=== PATIENT | female | born 1985 | race Caucasian/White ===

== ENCOUNTER 2016-11-08 08:23 | Day surgery (SDC) | payer BC ==
[~2016-11-08] VITALS: Ht 165.1 cm; Wt 76.2 kg
[~2016-11-08 08:23] MED LIST: BUTALB-ACETAMI1 EAC2 PO; CLONAZEPAM1 MG PO; CYMBALTA30 MG PO; FETZIMA40 MG PO; FETZIMA80 MG PO; HYDROMORPHONE HC4 MG PO; LORAZEPAM2 MG PO; LUTERA1 EAC1 PO; NAPROXEN500 MG PO; NORCO 7.5/321 TABLET PO; PREDNISONE20 MG PO; TOPIRAMATE25 MG PO; VALIUM10 MG PO
[2016-11-08 09:39] VITALS: BP 114/58
[2016-11-08] MEDS ORDERED: HYDROCODON-ACE1 EAC7 PO (11:39)
[2016-11-08] MEDS ORDERED: IBUPROFEN800 MG PO (11:39)
[2016-11-08 14:30] VITALS: BP 144/70
[2016-11-08 15:29] VITALS: BP 158/78
== END 2016-11-08 15:46 | disposition home or self-care (01) ==
LOC: SDC 08:23
DX: G89.29 Other chronic pain (principal); R10.2 Pelvic and perineal pain; N80.3 Endometriosis of pelvic peritoneum; N13.5 Crossing vessel and stricture of ureter without hydronephrosis; N94.6 Dysmenorrhea, unspecified; N32.89 Other specified disorders of bladder; N99.4 Postprocedural pelvic peritoneal adhesions; F17.210 Nicotine dependence, cigarettes, uncomplicated
CPT/HCPCS: 88307; J0131; J0690; J1100; J1170; J1885; J2250; J2710; J3010